=== PATIENT | male | born 1975 | race Asian ===

== ENCOUNTER 2017-04-11 11:59 | Day surgery (SDC) | payer OTHER ==
[~2017-04-11] VITALS: Ht 171.4 cm; Wt 77.0 kg
[2017-04-11] VITALS (9 sets, daily range): BP systolic 96–134; BP diastolic 54–89; PULSE 67–90; RESP 11–16; O2SAT 92–97
[~2017-04-11 11:59] MED LIST: CeFAZolin Inj 2 GM in IV Premix 1 EACH IV ONE; IBUP200C PO; KTC2C15 TP; MULT-1018 PO
[2017-04-11] MEDS ORDERED: Propofol 10,000 mCg/mL 20 mL Inj ONE (12:00)
[2017-04-11] MEDS ORDERED: Ondansetron 2 mg/mL 2 mL Inj ONE (12:00)
[2017-04-11] MEDS ORDERED: Dexamethasone 4 mg/mL Inj ONE (12:00)
[2017-04-11] MEDS ORDERED: fentaNYL-PF 50 mCg/mL 2 mL Inj ONE (12:00)
[2017-04-11] MEDS: Lactated Ringer's 1,000 ML IV SCH ×2 (12:42→14:28)
[2017-04-11] MEDS ORDERED: Lactated Ringer's 500 ML IV PRN (14:11)
[2017-04-11] MEDS ORDERED: Lactated Ringer's 1,000 ML IV SCH (14:11)
--- NOTE | 2017-04-11 14:11 | PCM.HPANE ---
Patient Data Date of Service: Apr 11, 2017 Surgeon Admitting Provider: Attending Provider:Justin Bruno DO Primary Care Physician:Sarah Beth King DO Other Provider:Antonia Floyd Anesthesia Reason for Visit Left Index Finger Middle Phalanx Fracture Ht/WT & BMI Height (Feet): 5 Height (Inches): 7.5 Weight (Kilograms): 77.02 Body Mass Index 26.00 Allergies Coded Allergies: No Known Allergies (Unverified , 04/10/17) Past Anesthesia History Anesthesia History: Denies:: Abnormal Airway, Anesthesia Reactions (no prior surgery), Difficult Intubation, Fam Anesthesia Reaction, Fam Malignant Hypertherm, Malignant Hyperthermia Diabetes History Hx Diabetes?: No MRSA MRSA: No Medications Hypertension Medication: No Home Meds Incl Beta Niurka: No Reported Medications Multivitamin (Multi Vitamin Daily)1 Each Tablet1 Each PO DAILY 30 Days Ref 0 04/10/17 Ketoconazole 15 Gm Cream..g.15 Gm TP BID 04/10/17 Ibuprofen 200 Mg [id number] Mg PO QID PRN For Pain Ref 0 04/10/17 History History of ENT Problems?: No HEENT History: Denies:: Abnormal Airway Cataracts Difficult Intubation Dysphagia Glaucoma Hearing Problem Sinus Problem TMJ Denture Type: None Teeth Condition: Missing Teeth Hx of Heart Problems?: No Cardiovascular History: Denies:: AICD Abdominal Aortic Aneurism Cardiac Surgery Edema Heart Murmur Hypertension Irregular Heartbeat Pacemaker Peripheral Vascular Hx of Respiratory Problem?: No Respiratory History: Denies:: Asthma COPD Emphysema Oxygen Administration Pneumonia Tuberculosis Use of C-PAP Machine Use of Inhalers / NEBS Hx Neurologic Problems?: No Neurological History: Denies:: Alzheimer's Disease CVA Dementia Dizziness Headaches Multiple Sclerosis Parkinson's Disease Seizures TIA Hx of GI Problems?: No Hx of Problems?: No Genitourinary History: Denies:: Kidney Stones Urinary Tract Infection Male Hx: Denies:: Prostate Problems Skin History: Positive for:: History Skin Disorders? (rash on chest last 2 weeks ) Denies:: Pressure Ulcers Hx Musculoskeletal Problems?: Yes Musculoskeletal History: Positive for:: Musculoskeletal Trauma (left index finger fx current admission problem) Denies:: Back Injury (occasional back pain) Fibromyalgia Joint Replacement Osteoarthritis Systemic Lupus Hx of Psycho/Social Problems?: No Psycho Social History: Denies:: Anxiety Hx Depression Hx Surgeries?: No (no prior surgery) Hx Any Other Health Problems?: Yes Other History: Denies:: Cancer Thyroid Disease History Blood Transfusions: Denies:: Accept Blood Products? Blood Transfusions Hx Diabetes: No Hx Alcohol Use: YesAlcoholic Drinks Per Day: 4-5 drinks weeklyHx Substance Use : NoHave You Smoked inLast 12 mo: No Stop/Bang S-Snoring: Do You Snore Loudly: Yes T-Tired: feel tired, fatigued: Yes O-Obsered: Observed not breath: No P-Blood Pressure: treated: No B- Body Mass Index > 35 kg/m2: No A- Age over 50: Yes N- Neck Large Circumference: No G- Gender Male: Yes TOÑO Total Score: 4 TOÑO Risk Assessment: High Risk, =/>3 Yes Risk Assessment Category Category 1A: Patient has history of documented sleep apnea, and HAS NOT received any narcotic, sedative or anesthesia administration during this stay. Category 1B: Patient has history of documented sleep apnea, and HAS received any narcotic , sedative or anesthesia administration during this stay Category 2: Patient has SUSPECTED Obstructive Sleep Apnea, and HAS received any narcotic , sedative or anesthesia administration during this stay. Category 3: Patient has SUSPECTED Obstructive Sleep Apnea and HAS NOT received narcotic, sedative or anesthesia administration during this stay. Category 4: Outpatient in Procedural Areas with known sleep apnea or who screen positive for High Risk via the STOP/BANG questionnaire. Exam Exam General Appearance: Alert, Oriented X3, Cooperative, No Acute Distress HEENT/AIRWAY: MP 2 Lungs: Normal Air Movement Heart: Exam Unremarkable Plan Impression Patient chart reviewed, patient interviewed and anesthestic plan with risks, benefits, and alternatives discussed, and informed consent obtained. NPO per Anesth. Guidelines: Yes ASA Physical Status: ASA2 Mod Systemic Disease Anesthetic Plan: GA Bene/Risks/Altern/Consents: Yes HP Complete Prior to Induction: Yes Pino Echols MD Apr 11, 2017 12:37
[2017-04-11] MEDS ORDERED: fentaNYL-PF 50 mCg/mL 2 mL Inj IVPUSH PRN (14:15)
[2017-04-11] MEDS ORDERED: MetoCLOpramide 5 mg/mL 2 mL Inj IVPUSH PRN (14:15)
[2017-04-11] MEDS ORDERED: Atropine 0.4 mg/mL Inj IVPUSH PRN (14:15)
[2017-04-11] MEDS ORDERED: Phenylephrine 10,000 mCg/mL Inj IVPUSH PRN (14:15)
[2017-04-11] MEDS ORDERED: HYDROmorphone 1 mg/mL Inj IVPUSH PRN (14:15)
[2017-04-11] MEDS ORDERED: Labetalol 5 mg/mL 4 mL Inj IV PRN (14:15)
[2017-04-11] MEDS ORDERED: Ondansetron 2 mg/mL 2 mL Inj IVPUSH PRN (14:15)
[2017-04-11] MEDS ORDERED: EPHEDrine Sulfate 50 mg/mL Inj IVPUSH PRN (14:15)
[2017-04-11] MEDS ORDERED: Dexamethasone 4 mg/mL Inj IVPUSH PRN (14:15)
[2017-04-11] MEDS ORDERED: HYDROcodone-APAP 7.5-325 mg Tablet PO PRN (14:20)
[2017-04-11] MEDS ORDERED: Lidocaine 1%-Epi 1:100,000 20 mL Inj INFILTRATE ONE (14:46)
--- NOTE | 2017-04-11 15:46 | PCM.ANEP1 ---
Post Anesthesia PACU Phase 1 Assessment Date of Service: Apr 11, 2017 Vital Signs Vital Signs Date Time Temp Pulse Resp B/P Pulse Ox O2 Delivery O2 Flow Rate FiO2 04/11/17 15:40 78 11 100/54 96 Simple Mask 10 04/11/17 15:35 80 15 104/58 97 Simple Mask 10 04/11/17 15:31 36.1 83 15 116/68 92 Nasal Cannula 4 04/11/17 12:36 36.6 67 14 134/79 96 Room Air Anesthetic Administered: GA Level of Alertness: Drowsy, not talking Pain: No Nausea or Vomiting: No CV Function & Hydration Stable: Yes Airway Device: Oralpharangeal Airway Oxygen Delivery: Simple Mask Lungs: Normal Air Movement PACU Phase 2 Assessment Complications: No Follow up Care: N/A Patient Instructions Provided: N/A Pino Echols MD Apr 11, 2017 15:45
--- NOTE | 2017-04-12 12:24 | OP ---
[address] [address] OPERATIVE REPORT PATIENT: MARIANA PADRON : 1975 MR#: [id number] ADMIT: 04/11/2017 JOB ID: [id number] DATE OF SURGERY: 04/11/2017 SURGEON: Justin Bruno DO PREOPERATIVE DIAGNOSIS(ES): Left index finger middle phalanx shaft fracture. POSTOPERATIVE DIAGNOSIS(ES): Left index finger middle phalanx shaft fracture. PROCEDURE: Open reduction, internal fixation of left index finger middle phalanx shaft fracture. ANESTHESIA: General. HISTORY: This patient is a pleasant 41-year-old male who sustained a crushing injury to the left index finger, demonstrating index finger middle phalanx shaft fracture with displacement as well as malrotation. Upon presentation, I discussed with the patient and his significant other, the risks, benefits and indications to proceed with closed reduction and percutaneous pinning versus open reduction, internal fixation of left index finger middle phalanx shaft fracture. They understood the risks include, but not limited to, neurovascular injury, tendon injury, infection, failure of fixation, stiffness, persistent pain, all of which may require further intervention. The patient had all questions answered. Consent was signed and placed in the chart. PROCEDURE IN DETAIL: The patient was brought to operating room suite and placed supine on the operating room table. Surgical time-out was performed. Given her injury, after appropriate anesthesia was obtained, a left upper arm tourniquet was applied. Left upper extremity prepped and draped in a sterile fashion. Left upper extremity was then evaluated under fluoroscopy. Manual reduction was attempted to be performed. Three reduction attempts were made and unable to adequately reduce the fracture in both planes. Thus, the decision was made to reduce the fracture. A curvilinear incision was made and centered at the fracture dorsally. Dissection was carried down to the extensor tendon. The extensor tendon was elevated from the radial margin exposing the fracture site. The fracture hematoma was evacuated as well as any surrounding fibrous interposed soft tissue. Manual reduction was then performed by levering of the distal fragment of the middle phalanx. Excellent reduction was obtained. This was followed by application of two 0.035 inch K-wires in a retrograde fashion from the distal phalanx across the distal interphalangeal joint and to the base of the middle phalanx. Position of the K-wires were verified under fluoroscopy. Excellent reduction was also obtained. Both K-wires were bent outside of the skin and cut short. The patient's dorsal operative site was copiously irrigated and closed with 5-0 nylon in simple interrupted fashion. The patient was then placed into a well-padded, well-molded radial gutter splint. ESTIMATED BLOOD LOSS: Less than 1 cc. COMPLICATIONS: None. DISPOSITION: The patient tolerated the procedure well. Anesthesia was reversed. The patient was transferred to PACU for recovery. IMPLANTS: Two 0.035 inch K-wires. POSTOPERATIVE PLAN: The patient will follow up in office in two weeks. The sutures will be removed at that time and he will be transitioned into a radial gutter cast for two more weeks before the pins were removed in the office.
== END 2017-04-11 23:59 | disposition home or self-care (01) ==
LOC: SAS 11:59
PROVIDERS: ATTEND Orthopaedic Surgery
DX: S62.621A Displaced fracture of middle phalanx of left index finger, initial encounter for closed fracture (principal); F17.210 Nicotine dependence, cigarettes, uncomplicated; W23.0XXA Caught, crushed, jammed, or pinched between moving objects, initial encounter; Y93.9 Activity, unspecified; Y92.9 Unspecified place or not applicable; Y99.9 Unspecified external cause status
CPT/HCPCS: 26735; 76000; J0690; J1100; J2250; J2405; J3010; J7120